=== PATIENT | female | born 1990 | race Caucasian/White ===

== ENCOUNTER 2021-01-28 10:40 | Emergency (ER) | payer OTHER ==
[~2021-01-28] VITALS: Ht 154.9 cm; Wt 59.9 kg
[2021-01-28 10:46] VITALS: BP 127/85
--- NOTE | 2021-01-28 10:49 | NUR ---
PT TOLD TO WAIT IN LOBBY.
--- NOTE | 2021-01-28 10:55 | NUR ---
30 Y/O FEMALE C/O PALPITATIONS X2DAY. PT STATES SHE HAS A HEADACHE 5/10 DESCRIBES THROBBING X1DAY. DENIES N/V, DENIES FEVER/CHILLS. DENIES PMH NKA
--- NOTE | 2021-01-28 11:04 | NUR ---
PT AMBULATED TO ER BED 11
--- NOTE | 2021-01-28 11:16 | NUR ---
per ermd 12 lead was done on pt and came back nsr at 75 hr.
[2021-01-28 11:47] LABS: BASOPHILS % (AUTO) 0.6 % (0.0-2.0); EOSINOPHILS # (AUTO) 0.1 K/uL (0-0.4); EOSINOPHILS % (AUTO) 1.6 % (0.0-4.0); HEMATOCRIT 38.8 % (36-48); HEMOGLOBIN 12.8 g/dL (12.0-16.0); LYMPHOCYTES # (AUTO) 1.6 K/uL (2.5-16.5); LYMPHOCYTES % (AUTO) 30.3 % (20.5-51.1); MEAN CORPUSCULAR HEMOGLOBIN 30 pg (27-31); MEAN CORPUSCULAR HGB CONC 33 g/dL (33-37); MEAN CORPUSCULAR VOLUME 91.1 fL (80-94); MONOCYTES # (AUTO) 0.5 K/uL (0.8-1.0); MONOCYTES % (AUTO) 9.9 % (1.7-9.3); NEUTROPHILS # (AUTO) 3.1 K/uL (1.8-7.7); NEUTROPHILS % (AUTO) 57.6 % (42.2-75.2); PLATELET COUNT (AUTO) 221 K/uL (140-450); RED BLOOD CELL COUNT(AUTO) 4.26 MIL/uL (4.20-5.40); RED CELL DISTRIBUTION WIDTH 12.4 % (11.6-13.7); WHITE BLOOD COUNT (AUTO) 5.3 K/uL (4.8-10.8)
--- NOTE | 2021-01-28 12:01 | NUR ---
RAD at bedside
[2021-01-28 12:18] LABS: ALBUMIN 3.9 g/dL (3.4-5.0); ANION GAP 11.1 (8-16); CARBON DIOXIDE 29.1 mmol/L (21-32); CREATININE 0.6 mg/dL (0.6-1.3); POTASSIUM 4.2 mmol/L (3.5-5.1); TOTAL BILIRUBIN 0.6 mg/dL (0.0-1.0)
[2021-01-28 12:50] VITALS: BP 122/58
== END 2021-01-28 12:51 | disposition home or self-care (01) ==
LOC: MED 10:40
DX: R00.2 Palpitations (principal)
CPT/HCPCS: 36415; 71045; 80053; 84484; 85025; 93005; 99285; Q0092

== ENCOUNTER 2021-02-27 06:58 | Emergency (ER) | payer OTHER ==
[~2021-02-27] VITALS: Ht 154.9 cm; Wt 59.0 kg
[2021-02-27 07:11] VITALS: BP 113/71
--- NOTE | 2021-02-27 07:21 | NUR ---
PT AMBULATED TO BED
--- NOTE | 2021-02-27 07:28 | NUR ---
DR PATEL AT BEDSIDE EXAMINING PT
--- NOTE | 2021-02-27 07:29 | NUR ---
30 Y/O FEMALE C/O LEFT UPPER BACK PAIN X 2 DAYS. DENIES TRAUMA/INJURY. NO PAIN OR BURNING UPON URINATION. REPORTS 10/10 SHARP CONSTANT PAIN. PT STATES SHE WAS WATCHING TV AND FELT SHARP PAIN. PMH: DENIES NKA
[2021-02-27] MEDS ORDERED: ACETAMINOPHEN 325 MG TAB PO ONE (07:35)
[2021-02-27] MEDS ORDERED: KETOROLAC 60 MG/2 ML VIAL IM ONE (07:35)
[2021-02-27] MEDS ORDERED: LIDOCAINE 5% 1 EA PATCH TP ONE (07:43)
[2021-02-27] MEDS ORDERED: LIDOCAINE 5% 1 EA PATCH TP SCH ×2 (07:50→09:00)
[2021-02-27] MEDS ORDERED: LID5T TP (08:11)
[2021-02-27] MEDS ORDERED: NAPR-54 PO (08:11)
[2021-02-27 08:17] VITALS: BP 113/71
--- NOTE | 2021-02-27 08:17 | NUR ---
Patient discharged with v/s stable. Written and verbal after care instructions given and explained. Patient alert, oriented and verbalized understanding of instructions. Ambulatory with steady gait. All questions addressed prior to discharge. ID band removed. Patient advised to follow up with PMD. Rx of LIDODERM 5% PATCH AND NAPROSYN given. Patient educated on indication of medication including possible reaction and side effects. Opportunity to ask questions provided and answered.
== END 2021-02-27 08:17 | disposition home or self-care (01) ==
LOC: MED 06:58
DX: M54.59 Other low back pain (principal); Z79.899 Other long term (current) drug therapy; Z85.9 Personal history of malignant neoplasm, unspecified
CPT/HCPCS: 81002; 81025; 96372; 99283; J1885

== ENCOUNTER 2022-05-18 09:35 | Emergency (ER) | payer OTHER, MEDICAID ==
[~2022-05-18] VITALS: Ht 154.9 cm; Wt 59.4 kg
[~2022-05-18 09:35] MED LIST: LID5T TP; NAPR-54 PO
[2022-05-18 09:48] VITALS: BP 133/74
--- NOTE | 2022-05-18 11:11 | NUR ---
PT TAKEN TO CT
[2022-05-18 11:13] LABS: BASOPHILS % (AUTO) 0.6 % (0.0-2.0); EOSINOPHILS % (AUTO) 0.5 % (0.0-4.0); HEMATOCRIT 40.3 % (36-48); HEMOGLOBIN 13.6 g/dL (12.0-16.0); LYMPHOCYTES % (AUTO) 34.7 % (20.5-51.1); MEAN CORPUSCULAR HEMOGLOBIN 30 pg (27-31); MEAN CORPUSCULAR HGB CONC 34 g/dL (33-37); MEAN CORPUSCULAR VOLUME 88.7 fL (80-94); MONOCYTES # (AUTO) 0.5 K/uL (0.8-1.0); MONOCYTES % (AUTO) 9.2 % (1.7-9.3); NEUTROPHILS # (AUTO) 3.2 K/uL (1.8-7.7); PLATELET COUNT (AUTO) 225 K/uL (140-450); RED BLOOD CELL COUNT(AUTO) 4.55 MIL/uL (4.20-5.40); RED CELL DISTRIBUTION WIDTH 13.1 % (11.6-13.7); WHITE BLOOD COUNT (AUTO) 5.9 K/uL (4.8-10.8)
[2022-05-18 11:25] LABS: APPEARANCE,URINE CLEAR (CLEAR); BILIRUBIN,URINE NEGATIVE (NEGATIVE); BLOOD, URINE SMALL (NEGATIVE); COLOR,URINE YELLOW (YELLOW); LEUKOCYTE ESTERASE ,URINE NEGATIVE (NEGATIVE); NITRITE, URINE NEGATIVE (NEGATIVE); UGLUCOSE NEGATIVE (NEGATIVE)
[2022-05-18 11:31] LABS: RBC,URINE 0-5 /HPF (0-5); WBC,URINE 0-5 /HPF (0-5)
[2022-05-18 11:52] LABS: ALBUMIN 4.7 g/dL (3.4-5.0); ANION GAP 10.9 (8-16); CARBON DIOXIDE 26.2 mmol/L (21-32); CREATININE 0.7 mg/dL (0.6-1.3); POTASSIUM 4.1 mmol/L (3.5-5.1); THYROID STIMULATING HORMONE 1.91 uIU/mL (0.34-3.74); TOTAL BILIRUBIN 0.5 mg/dL (0.0-1.0)
[2022-05-18] MEDS ORDERED: BEN10 PO (12:07)
[2022-05-18 12:17] VITALS: BP 115/64
--- NOTE | 2022-05-18 12:17 | NUR ---
Patient discharged with v/s stable. Written and verbal after care instructions given and explained. Patient alert, oriented and verbalized understanding of instructions. Ambulatory with steady gait. All questions addressed prior to discharge. ID band removed. Patient advised to follow up with PMD. Rx of BENTYL given. Patient educated on indication of medication including possible reaction and side effects. Opportunity to ask questions provided and answered.
== END 2022-05-18 12:13 | disposition home or self-care (01) ==
LOC: MED 09:35
DX: N20.0 Calculus of kidney (principal); K58.9 Irritable bowel syndrome, unspecified; R14.0 Abdominal distension (gaseous); K21.9 Gastro-esophageal reflux disease without esophagitis; Z79.899 Other long term (current) drug therapy
CPT/HCPCS: 36415; 80053; 81001; 81025; 84443; 85025; 99284